=== PATIENT | male | born 1970 | race African-American/Black ===

== ENCOUNTER 2022-03-27 07:04 | Emergency (ER) | payer OTHER ==
[2022-03-27 07:14] VITALS: BMI 37.1
[2022-03-27] MEDS ORDERED: LACTATED RINGERS SOLUTION 1000 ML INFUS.BAG IV ONE ×2 (07:42→09:53)
[2022-03-27] MEDS ORDERED: ACETAMINOPHEN 1000 MG/100 ML BAG IVPB ONE (07:42)
[2022-03-27] MEDS ORDERED: ACETAMINOPHEN INJECTION 100 ML IVPB ONE (07:45)
[2022-03-27] MEDS ORDERED: morphine CARPU-JECT 4 MG/1 ML DISP.SYRIN IVPUSH ONE ×2 (07:54→08:23)
[2022-03-27] MEDS ORDERED: morphine SULFATE 4 MG/ML VIAL ONE ×2 (07:55→08:30)
[2022-03-27] MEDS ORDERED: ONDANSETRON 4 MG/2 ML VIAL IVPUSH ONE (07:57)
[2022-03-27 09:45] LABS: BASO % 0.2 % (0-2.0); EOS % 0.7 % (0-4.5); HEMATOCRIT 45.7 % (35.4-49); HEMOGLOBIN 14.8 GM/dL (11.7-16.9); LYMPH % 52.9 % (8-40); MCH 26.6 pg (25.7-33.7); MCHC 32.3 g/dl (32.0-35.9); MEAN CELL VOLUME 82.4 fl (80-96); MEAN PLT VOLUME 8.5 fl (7.5-11.1); MONO % 6.7 % (3.8-10.2); NEUT % 39.5 % (42.8-82.8); PLATELET COUNT 303 10^3/uL (134-434); RBC 5.55 M/mm3 (4.00-5.60); RDW 14.7 % (11.9-15.9); WHITE BLOOD COUNT 6.3 K/mm3 (4.0-10.0)
[2022-03-27 09:49] LABS: CALCIUM 9.1 mg/dL (8.5-10.1); MAGNESIUM 2.2 mg/dL (1.8-2.4)
[2022-03-27] MEDS ORDERED: HYDROmorphone HCL CARPU-JECT 2 MG/1 ML DISP.SYRIN IVPUSH ONE (09:50)
[2022-03-27 09:52] LABS: CREATININE 1.5 mg/dL (0.55-1.3)
[2022-03-27 09:54] LABS: BILIRUBIN,TOTAL 0.4 mg/dL (0.2-1); TOT PROT 7.5 g/dl (6.4-8.2)
[2022-03-27 11:55] LABS: CALCIUM 9.3 mg/dL (8.5-10.1)
[2022-03-27 11:56] LABS: MAGNESIUM 2.2 mg/dL (1.8-2.4)
[2022-03-27 11:59] LABS: CREATININE 1.4 mg/dL (0.55-1.3)
[2022-03-27 12:15] LABS: URINE APPEARANCE CLEAR; URINE BILIRUBIN NEGATIVE (NEGATIVE); URINE COLOR YELLOW; URINE GLUCOSE (UA) NEGATIVE (NEGATIVE); URINE KETONE NEGATIVE (NEGATIVE); URINE LEUK ESTERASE NEGATIVE (NEGATIVE); URINE NITRITE NEGATIVE (NEGATIVE); URINE PROTEIN NEGATIVE (NEGATIVE); URINE UROBILINOGEN 0.2 mg/dL (0.2-1.0)
[2022-03-27 13:17] LABS: CALCIUM 9.2 mg/dL (8.5-10.1)
[2022-03-27 13:18] LABS: BLOOD UREA NITROGEN 11.8 mg/dL (7-18)
[2022-03-27 13:21] LABS: CREATININE 1.3 mg/dL (0.55-1.3)
[2022-03-27 13:41] VITALS: BP 110/68; PULSE 87; RESP 19; TEMP 97.9
== END 2022-03-27 13:41 | disposition home or self-care (01) ==
LOC: EDBD 07:04 → JER 07:04
PROC: 3E0333Z Introduction of Anti-inflammatory into Peripheral Vein, Percutaneous Approach (ICD-10-PCS; principal; 2022-03-27)
PROC: 3E033NZ Introduction of Analgesics, Hypnotics, Sedatives into Peripheral Vein, Percutaneous Approach (ICD-10-PCS; 2022-03-27)
PROC: 3E033NZ Introduction of Analgesics, Hypnotics, Sedatives into Peripheral Vein, Percutaneous Approach (ICD-10-PCS; 2022-03-27)
PROC: 3E033GC Introduction of Other Therapeutic Substance into Peripheral Vein, Percutaneous Approach (ICD-10-PCS; 2022-03-27)
DX: N20.0 Calculus of kidney (principal); R10.32 Left lower quadrant pain
CPT/HCPCS: 36415; 74176-TC; 80048; 80053; 81003; 83735; 85025; 87086; 99284-25; C9803-CS; U0003; U0005